=== PATIENT | male | born 1975 | race Caucasian/White ===

== ENCOUNTER 2022-11-12 06:52 | Day surgery (SDC) | payer BC ==
[~2022-11-12 06:52] MED LIST: Lactated Ringers 1,000 ML IV SCH
[2022-11-12] MEDS ORDERED: Propofol 200 MG/20 ML SDV ONE (07:08)
[2022-11-12] MEDS ORDERED: fentaNYL 100 MCG/2 ML SDV ONE (07:08)
[2022-11-12] MEDS ORDERED: ePHEDrine 50 MG/ML SDV ONE (07:17)
[2022-11-12] MEDS ORDERED: Glycopyrrolate 0.2 MG/ML SDV ONE (07:17)
[2022-11-12] MEDS ORDERED: Water For Injection, Sterile 20 ML ONE (07:18)
[2022-11-12] MEDS ORDERED: Bupivacaine 0.5% 30 ML SDV ONE (07:24)
[2022-11-12] MEDS ORDERED: Ropivacaine 0.5% 5 MG/ML 30 ML SDV ONE (07:26)
[2022-11-12] MEDS ORDERED: Ondansetron 4 MG/2 ML SDV IVPUSH PRN (07:50)
[2022-11-12] MEDS ORDERED: Albuterol 0.083% 2.5 MG/3 ML Neb Soln NEB PRN (07:50)
[2022-11-12] MEDS ORDERED: fentaNYL 50 MCG/ML SDV IVPUSH PRN (07:50)
[2022-11-12] MEDS ORDERED: HYDROmorphone 1 MG/ML Syringe IVPUSH PRN (07:50)
[2022-11-12] MEDS ORDERED: Naloxone 0.4 MG/ML SDV IVPUSH PRN (07:50)
[2022-11-12] MEDS ORDERED: Morphine 2 MG/ML SYRINGE IVPUSH PRN (07:50)
[2022-11-12] MEDS ORDERED: Metoclopramide 10 MG/2 ML SDV IVPUSH PRN (07:50)
[2022-11-12] MEDS ORDERED: Midazolam 1 MG/ML 2 ML SDV ONE ×2 (08:01→08:02)
[2022-11-12] MEDS ORDERED: Lactated Ringers 1,000 ML IV SCH (09:15)
== END 2022-11-12 09:35 | disposition home or self-care (01) ==
LOC: MW.SDS 06:52
PROVIDERS: ATTEND Surgery
DX: D23.62 Other benign neoplasm of skin of left upper limb, including shoulder (principal); U07.1 COVID-19; E03.9 Hypothyroidism, unspecified; E66.9 Obesity, unspecified; Z68.37 Body mass index [BMI] 37.0-37.9, adult; Z79.899 Other long term (current) drug therapy; Z98.890 Other specified postprocedural states; Z87.891 Personal history of nicotine dependence
CPT/HCPCS: 25075; J2250; J2795; J3010; J7120; J2704; J3490

== ENCOUNTER 2023-09-05 07:33 | Day surgery (SDC) | payer BC ==
[~2023-09-05 07:33] MED LIST changes: +propofoL 50 ML ONE
[2023-09-05] MEDS ORDERED: Propofol 200 MG/20 ML SDV ONE (09:05)
[2023-09-05] MEDS ORDERED: Lactated Ringers 1,000 ML IV SCH (09:30)
== END 2023-09-05 09:50 | disposition home or self-care (01) ==
LOC: MW.SDS 07:33
PROVIDERS: ATTEND Surgery
DX: Z12.11 Encounter for screening for malignant neoplasm of colon (principal); E03.9 Hypothyroidism, unspecified; E66.9 Obesity, unspecified; Z79.890 Hormone replacement therapy; Z79.85 Long-term (current) use of injectable non-insulin antidiabetic drugs; Z98.890 Other specified postprocedural states; Z87.891 Personal history of nicotine dependence; Z68.34 Body mass index [BMI] 34.0-34.9, adult
CPT/HCPCS: 45378; J2704; J7120